=== PATIENT | female | born 1975 | race Caucasian/White ===

== ENCOUNTER 2016-10-05 10:07 | Emergency (ER) | payer SELFPAY ==
[2016-10-05] MEDS ORDERED: Lidocaine 1% 20 ML MDV INJECT ONE (10:40)
--- NOTE | 2016-10-05 11:15 | EDM.PDOC ---
ED HPI GENERAL MEDICAL PROBLEM - General Chief Complaint: Laceration Stated Complaint: CUT TO FINGER ON RIGHT HAND Time Seen by Provider: 10/05/16 10:30 Source of Information: Reports: Patient History Limitations: Reports: No Limitations - History of Present Illness INITIAL COMMENTS - FREE TEXT/NARRATIVE: HISTORY AND PHYSICAL: History of present illness: [Pt comes to the ER for evaluation of laceration to the pad of Right index finger. Occurred around midnight last night while she was working under the castillo of a vehicle. patient had 4 beers to drink and chose not to drive, she could not find anyone to drive her to ER. Complains of pain to her index finger , and has superficial lacerations to her middle and ring fingers. Had tetanus updated within the past couple of years. Has no other complaints or concerns at this time.] Review of systems: As per history of present illness and below otherwise all systems reviewed and negative. Past medical history: As per history of present illness and as reviewed below otherwise noncontributory. Surgical history: As per history of present illness and as reviewed below otherwise noncontributory. Social history: No reported history of drug or alcohol abuse. Family history: As per history of present illness and as reviewed below otherwise noncontributory. Physical exam: HEENT: Atraumatic, normocephalic. Extremities: 2 cm jagged laceration to proximal DIP joint. Appears old but clean and not contaminated. No bleeding. Superficial abrasions to the pads of ring and middle fingers. Neurovascular unremarkable. Neuro: Awake, alert, oriented. Motor and sensory unremarkable throughout. Exam nonfocal. Impression: [Laceration right index finger] Plan: [See procedure note. Rx written for Cephalexin 500 mg #21 sig 1 by mouth 3 times a day 0 refills. Return to ER in 7 days to have sutures removed. Wound care instructions given. Patient's in agreement with today's plan.] Definitive disposition and diagnosis as appropriate pending reevaluation and review of above. right index finger Pain Score (Numeric/FACES): 5 - Related Data Allergies Allergy/AdvReac Type Severity Reaction Status Date / Time No Known Allergies Allergy Verified 10/05/16 10:19 Home Meds: Home Meds . 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 ED EXAM, SKIN/RASH Exam: See Below ED SKIN PROCEDURES - Laceration/Wound Repair Right Distal Finger Lac/Wound length In cm: 2 Appearance: Subcutaneous Distal NVT: Neuro & Vascular Intact Anesthetic Type: Local Local Anesthesia - Lidocaine (Xylocaine): 1% Plain Local Anesthetic Volume: 2cc Skin Prep: Chlorhexidine (Hibiciens), Isopropyl Alcohol (Alcohol), Saline Exploration/Debridement/Repair: Wound Explored, in a Bloodless Field Closed with: Sutures, Steri-Strips Suture Size: 4-0 # of Sutures: 4 Sterile Dressing Applied: Nurse Tetanus Status Addressed: Yes Complications: No Course - Vital Signs Last Recorded V/S: Last Vital Signs Temp 97.6 F 10/05/16 10:22 Pulse 70 10/05/16 11:28 Resp 15 10/05/16 11:28 BP 122/76 10/05/16 11:28 Pulse Ox 96 10/05/16 11:28 - Orders/Labs/Meds Meds: Medications Discontinued Medications Generic Name Dose Route Start Last Admin Trade Name Kadi PRN Reason Stop Dose Admin Lidocaine HCl 20 ml 10/05/16 10:40 10/05/16 10:46 Xylocaine 1% INJECT 10/05/16 10:41 20 ml ONETIME ONE Administration Departure - Departure Time of Disposition: 11:15 Disposition: Home, Self-Care 01 Condition: Good Clinical Impression: Laceration - Discharge Information Instructions: Laceration Care, Adult Referrals: PCP,None [Primary Care Provider] - Forms: ED Department Discharge Additional Instructions: The following information is given to patients seen in the emergency department who are being discharged to home. This information is to outline your options for follow-up care. We provide all patients seen in our emergency department with a follow-up referral. The need for follow-up, as well as the timing and circumstances, are variable depending upon the specifics of your emergency department visit. If you don't have a primary care physician on staff, we will provide you with a referral. We always advise you to contact your personal physician following an emergency department visit to inform them of the circumstance of the visit and for follow-up with them and/or the need for any referrals to a consulting specialist. The emergency department will also refer you to a specialist when appropriate. This referral assures that you have the opportunity for follow-up care with a specialist. All of these measure are taken in an effort to provide you with optimal care, which includes your follow-up. Under all circumstances we always encourage you to contact your private physician who remains a resource for coordinating your care. When calling for follow-up care, please make the office aware that this follow-up is from your recent emergency room visit. If for any reason you are refused follow-up, please contact the [facility] emergency department at and asked to speak to the emergency department charge nurse. [facility] [address] [place] [id number] Follow-up with your primary care provider in 48-72 hours. Return to ER in 7 days to have sutures removed and as discussed. Take medications as prescribed.
[2016-10-05 11:29] VITALS: BP 122/76
== END 2016-10-05 11:28 | disposition home or self-care (01) ==
LOC: MW.ED 10:07
DX: S61.210A Laceration without foreign body of right index finger without damage to nail, initial encounter (principal); F17.210 Nicotine dependence, cigarettes, uncomplicated; X58.XXXA Exposure to other specified factors, initial encounter
CPT/HCPCS: 12001; 99282; 99283